=== PATIENT | male | born 1945 | race Caucasian/White ===

== ENCOUNTER → 2022-12-20 12:33 | Outpatient (CLI) | payer MEDICARE, OTHER, SELFPAY ==
--- NOTE | 2022-12-20 | DI.CT.S_ITS ---
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 10 mm maximum intensity projection (MIP) oblique sagittal and coronal reformats were then acquired. For radiation dose reduction, the following was used: automated exposure control. COMPARISON: None. FINDINGS: Image quality: Excellent. AORTA: Ascending aorta measures 4.2 x 4.2 cm at the level of the main pulmonary artery (4/66). Descending thoracic aorta measures 2.6 x 2.6 cm and 2.5 x 2.3 cm at the level of the main pulmonary artery and diaphragmatic hiatus respectively (4/66, 131). No dissection or penetrating atherosclerotic ulcer. Minimal atherosclerotic calcification. Pulmonary artery: Main pulmonary artery is normal in caliber. No filling defects in the central pulmonary vasculature. CHEST: Lungs and pleura in caliber. Mediastinum: Heart size is normal. No pericardial effusion. No mediastinal or hilar adenopathy by size criteria. Central pulmonary arteries are normal in size. Esophagus is normal in caliber. No hiatal hernias. Bones and chest wall: No axillary adenopathy by size criteria. Thyroid gland partially visualized and unremarkable. No suspicious bony lesions. No vertebral body compression fractures. ABDOMEN: Arterial phase imaging limits evaluation of the visceral organs. Vasculature: Mild calcification of the abdominal aorta, without aneurysm. Celiac trunk and mesenteric arteries are patent. Renal arteries are also patent. Proximal mesenteric vessels are patent. Solid organs: Liver is normal in size and enhancement. Subcentimeter hypodensity in the left hepatic lobe is too small to characterize (4/120). Gallbladder is unremarkable. Biliary system is non dilated. Pancreas enhances normally. Spleen is normal in size. Subcentimeter internal foci in the spleen may represent perfusion all changes versus tiny hemangiomas (4/108, 131). No adrenal nodules. Both kidneys are normal in size and enhancement, without hydronephrosis. Left-sided simple renal cysts. Scattered colonic diverticuli. No evidence of diverticulitis. Peritoneum and bowel: No free fluid or air. Bowel loops are normal in caliber and wall thickness. Nodes and vessels: No retroperitoneal or mesenteric adenopathy by size criteria. Inferior vena cava is normal in morphology. Bones: No suspicious bony lesions. No vertebral body compression fractures. Moderate to marked multilevel degenerative changes of the spine. Miscellaneous: Tiny fat containing ventral hernia. IMPRESSION: 1. Ascending aorta is enlarged measuring 4.2 x 4.2 cm. Abdominal aorta is normal in caliber. No acute aortic pathology. 2. Centrilobular subcentimeter nodule/calcifications in the middle lobe and bilateral lower lobes likely represent sequela of remote infection and/or inflammation. 3. Colonic diverticulosis without diverticulitis. Dictated by: Ty Zarate M.D. on 12/20/2022 at 14:27 Approved by: Ty Zarate M.D. on 12/20/2022 at 15:47
== END ==
PROVIDERS: Referring Provider Internal Medicine Cardiovascular Disease; Visit Provider Internal Medicine Cardiovascular Disease
DX: I71.21 Aneurysm of the ascending aorta, without rupture (principal); K57.90 Diverticulosis of intestine, part unspecified, without perforation or abscess without bleeding
CPT/HCPCS: 71275; 74175; Q9967

== ENCOUNTER → 2023-10-04 10:24 | Outpatient (CLI) | payer MEDICARE, OTHER, SELFPAY | PROVIDERS: PCP Internal Medicine; Referring Provider Otolaryngology; Visit Provider Nurse Practitioner Family | DX: H91.22 Sudden idiopathic hearing loss, left ear (principal); H93.13 Tinnitus, bilateral; I10 Essential (primary) hypertension; I25.10 Atherosclerotic heart disease of native coronary artery without angina pectoris; Z79.52 Long term (current) use of systemic steroids | CPT/HCPCS: 99203; 99212 ==

== ENCOUNTER → 2023-10-04 11:46 | Outpatient (CLI) | payer MEDICARE, OTHER, SELFPAY ==
--- NOTE | 2023-10-04 11:47 | DI.RAD.S_ITS ---
PROCEDURE: XR CHEST 2V INDICATIONS: Eval for HBO TECHNIQUE: 2 views of the chest were acquired. COMPARISON: None. FINDINGS: Surgical changes and devices: None. Lungs and pleura: Bibasilar hazy opacities. No pleural effusions or pneumothorax. Mediastinum: Mediastinal contours are normal. Heart size is normal. Bones and chest wall: No suspicious bony abnormalities. Soft tissues appear unremarkable. IMPRESSION: Bibasilar hazy opacities. This may be on the basis of atelectasis and/or infiltrates. Dictated by: Surjit Moss M.D. on 10/05/2023 at 8:28 Approved by: Surjit Moss M.D. on 10/05/2023 at 8:33
== END ==
PROVIDERS: PCP Internal Medicine; Referring Provider Nurse Practitioner Family; Visit Provider Nurse Practitioner Family
DX: Z01.810 Encounter for preprocedural cardiovascular examination (principal); H91.90 Unspecified hearing loss, unspecified ear; H91.22 Sudden idiopathic hearing loss, left ear; H93.13 Tinnitus, bilateral; I10 Essential (primary) hypertension; I25.10 Atherosclerotic heart disease of native coronary artery without angina pectoris; Z79.52 Long term (current) use of systemic steroids
CPT/HCPCS: 71046; 99212

== ENCOUNTER → 2023-11-10 13:13 | Outpatient (CLI) | payer MEDICARE, OTHER, SELFPAY ==
--- NOTE | 2023-11-10 13:15 | DI.MRI.S_ITS ---
PROCEDURE: MR BRAIN (IAC) WWO CON INDICATIONS: Sensorineural hearing loss, bilateral TECHNIQUE: Noncontrast sagittal T1 spin echo, axial FLAIR, axial gradient echo, axial diffusion and ADC through the brain. Axial thin-slice 3D CISS, coronal TruFISP, axial T1 spin echo with fat saturation through the internal auditory canals. After the administration of contrast, thin slice axial and coronal T1 spin echo with fat saturation through the internal auditory canals, and axial and coronal and sagittal T1 spin echo with fat saturation through the brain. COMPARISON: None. FINDINGS: Image quality: Excellent Cerebellopontine angles: No cerebellopontine angle masses. Inner ear structures appear normally formed. No suspicious enhancement in the internal auditory canal or along the course of the 7th cranial nerve. CSF spaces: Ventricles are normal in size and shape. No extra-axial fluid collections. Basal cisterns are patent. Brain: No intracranial bleeds or mass effects. Age-related global volume loss is noted. Significant volume loss is noted involving the cerebellum and vermis. Villalobos-white matter interface is intact. No abnormal intracranial enhancement. Diffusion weighted images demonstrate no acute ischemic insults. Brainstem appears normal. Normal intravascular flow voids are present. Skull and face: Calvarial marrow signal is normal. Orbits appear normal. Sinuses: Sinuses and mastoids are clear. IMPRESSION: No cause for patient's symptoms is identified. Normal appearance of the cerebellopontine angles and internal auditory canals. Global volume loss is present, most significant involving the cerebellum and vermis. No acute intracranial abnormalities or abnormal intracranial enhancement. Dictated by: Long Maciel M.D. on 11/10/2023 at 20:43 Approved by: Long Maciel M.D. on 11/10/2023 at 20:47
== END ==
LOC: MRI 13:14
PROVIDERS: PCP Internal Medicine; Referring Provider Otolaryngology; Visit Provider Otolaryngology
DX: H91.22 Sudden idiopathic hearing loss, left ear (principal); H90.3 Sensorineural hearing loss, bilateral; R90.89 Other abnormal findings on diagnostic imaging of central nervous system
CPT/HCPCS: 70553; A9579